=== PATIENT | female | born 1960 | race Two or more races ===

== ENCOUNTER → 2019-05-18 06:00 | Outpatient (CLI) | payer OTHER ==
[~2019-05-18] VITALS: Ht 167.6 cm; Wt 85.7 kg
[~2019-05-18 06:00] MED LIST: LASIX20 MG PO; LIPITOR20 MG PO; MELOXICAM15 MG PO; VERELAN240 MG PO; XELJANZ XR11 MG PO
== END | disposition home or self-care (01) ==
LOC: EKG 06:00 → SURG 05-25 09:45 → EDSTATUS 05-25 09:45
DX: D37.3 Neoplasm of uncertain behavior of appendix (principal); D12.1 Benign neoplasm of appendix

== ENCOUNTER 2019-07-23 15:15 | Inpatient (IN) | payer OTHER ==
[~2019-07-23] VITALS: Ht 167.6 cm; Wt 86.2 kg
[2019-07-27] MEDS ORDERED: LIPITOR20 MG PO (13:14)
[2019-07-31] MEDS ORDERED: ULTRACET PO (12:27)
== END 2019-07-31 14:27 | disposition home or self-care (01) | DRG 331 ==
LOC: O/R 07-30 09:40 → SURH 07-30 10:00 → SURG 07-30 17:29
PROVIDERS: ADMIT Surgery
PROC: 0DBH4ZZ Excision of Cecum, Percutaneous Endoscopic Approach (ICD-10-PCS; principal; 2019-07-30 13:00)
DX: D12.1 Benign neoplasm of appendix (principal); K63.89 Other specified diseases of intestine